=== PATIENT | female | born 2000 | race American Indian/Alaskan Native ===

== ENCOUNTER 2021-01-22 18:49 | Outpatient (CLI) | payer OTHER ==
[2021-01-22] MEDS ORDERED: LACTATED RINGERS 1,000 ML IV ONE (20:52)
[2021-01-22] MEDS ORDERED: TERBUTALINE 1 MG/1 ML INJ SUB-Q PRN (21:18)
[2021-01-22 21:22] LABS: Amphetamine Screen,Urine Negative; Benzodiazepines Screen,Urine Negative; Cannabinoid Screen,Urine Negative; Cocaine Screen,Urine Negative; Methadone Screen,Urine Negative; Opiate Screen,Urine Negative
[2021-01-22 21:23] LABS: Bilirubin,Urine NEG (Negative); Blood,Urine NEG (Negative); Color,Urine Yellow (Yellow); Protein,Urine <15 mg/dL mg/dL (Negative); Urobilinogen,Urine < 2.0 mg/dL (<2.0)
[2021-01-22 21:24] LABS: Mucus,Urine FEW /HPF
[2021-01-23 02:35] VITALS: BP 118/58
--- NOTE | 2021-01-28 09:34 | Ultrasound Report ---
US OB BPP wo non-stress, US OB limited INDICATION / CLINICAL INFORMATION: Blunt trauma to abdomen. COMPARISON: None available. FINDINGS: BREATHING MOVEMENT = 2 GROSS BODY MOVEMENT = 2 TONE = 2 QUALITATIVE AMNIOTIC FLUID VOLUME = 2 TOTAL BIOPHYSICAL SCORE = 8/8 PRESENTATION: Breech. HEART RATE (beats per minute): 164 Additional findings: Posterior placenta is free of the os. No evidence of placental abruption. IMPRESSION: 1. Single live IUP. 2. biophysical profile = 8/8 3. No significant abnormality. No evidence of placental abruption. Signer Name: Afshin Villatoro MD Signed: 01/22/2021 11:19 PM Workstation Name: [id number]
== END 2021-01-22 23:17 | disposition home or self-care (01) ==
LOC: EDSTATUS 20:03 → TRG 20:06 → APU 20:07 → TRG 23:17
DX: O36.8130 Decreased fetal movements, third trimester, not applicable or unspecified (principal); Z3A.32 32 weeks gestation of pregnancy; Z79.899 Other long term (current) drug therapy; V49.60XA Unspecified car occupant injured in collision with unspecified motor vehicles in traffic accident, initial encounter; Y93.89 Activity, other specified; Y92.89 Other specified places as the place of occurrence of the external cause; Y99.8 Other external cause status
CPT/HCPCS: 59025; 76815; 76819; 80307; 81001; 96360; 96372; J3105; J7120